=== PATIENT | female | born 1960 | race Caucasian/White ===

== ENCOUNTER 2019-07-11 05:32 | Day surgery (SDC) | payer BC ==
[~2019-07-11] VITALS: Ht 172.7 cm; Wt 86.2 kg
[2019-07-11] MEDS ORDERED: SODIUM CHLORIDE 0.9% 1000ML 1,000 ML IV ONE (05:52)
[2019-07-11 06:09] VITALS: BP 112/76
[2019-07-11] MEDS ORDERED: CALC-724 PO (06:21)
[2019-07-11] MEDS ORDERED: MULT-1203 PO (06:21)
[2019-07-11] MEDS ORDERED: RIVA20TA PO (06:21)
[2019-07-11] MEDS ORDERED: CRANBERRY PO (06:21)
[2019-07-11] MEDS ORDERED: MILK THISTLE PO (06:21)
[2019-07-11] MEDS ORDERED: FIBER SUPPLEMENT PO (06:21)
[2019-07-11] MEDS ORDERED: HAIR, SKIN, NAIL PO (06:21)
[2019-07-11] MEDS ORDERED: METO25TA6 PO (06:21)
[2019-07-11] MEDS ORDERED: PROPOFOL 10 MG/ML 20ML VIAL IV ONE (06:38)
[2019-07-11] MEDS ORDERED: LIDOCAINE HCL-MPF 2% 5ML VIAL ONE (06:38)
[2019-07-11 06:58] VITALS: BP 100/65
[2019-07-11 07:03] VITALS: BP 102/65
[2019-07-11 07:08] VITALS: BP 104/66
[2019-07-11 07:13] VITALS: BP 108/66
[2019-07-11 07:18] VITALS: BP 112/66
--- NOTE | 2019-07-11 07:23 | NUR ---
dc pt dc home via wc,no distress noted, pt denied any pain or discomforts. accompanied by spouse
== END 2019-07-11 07:23 | disposition home or self-care (01) ==
LOC: ENDO 05:32 → DAH 05:32 → ENDO 07:23
PROVIDERS: ATTEND Internal Medicine
DX: K59.01 Slow transit constipation (principal); K62.1 Rectal polyp; K57.30 Diverticulosis of large intestine without perforation or abscess without bleeding; K64.0 First degree hemorrhoids; I48.91 Unspecified atrial fibrillation; I10 Essential (primary) hypertension; Z98.890 Other specified postprocedural states; Z80.0 Family history of malignant neoplasm of digestive organs; Z86.010 Personal history of colon polyps; Z88.0 Allergy status to penicillin; Z79.899 Other long term (current) drug therapy
CPT/HCPCS: 45380; A4215; A4221; A4222; A4223; A4606; A4615; A4663; J2704; J3490; J7030; 43239